=== PATIENT | male | born 1995 | race Caucasian/White ===

== ENCOUNTER 2022-05-19 21:02 | Emergency (ER) | payer BC ==
[~2022-05-19] VITALS: Ht 188 cm; Wt 120.2 kg
[2022-05-19 22:52] LABS: Influenza B, PCR NEGATIVE (NEGATIVE); Resp Syncytial Virus, PCR NEGATIVE (NEGATIVE); SARS-Cov-2 (COVID-19) PCR, MMC NEGATIVE (NEGATIVE)
[2022-05-19 23:16] LABS: Influenza A, PCR POSITIVE (NEGATIVE)
== END 2022-05-20 00:25 | disposition home or self-care (01) ==
LOC: ER 21:02
PROVIDERS: Student in an Organized Health Care Education/Training Program
DX: J10.1 Influenza due to other identified influenza virus with other respiratory manifestations (principal); E86.0 Dehydration; Z20.822 Contact with and (suspected) exposure to COVID-19
CPT/HCPCS: 0241U; A9270